=== PATIENT | female | born 1950 | race Caucasian/White ===

== ENCOUNTER → 2018-01-23 13:32 | Outpatient (CLI) | payer OTHER, MEDICARE, SELFPAY ==
--- NOTE | 2018-01-23 | DI.RAD.S_ITS ---
PROCEDURE: XR LUMBAR SPINE 2-3V INDICATIONS: DORSALGIA TECHNIQUE: 3 views of the lumbar spine were acquired. COMPARISON: None. FINDINGS: Bones: Moderate dextroconvex thoracolumbar scoliosis is seen. There is mild grade 1 retrolisthesis seen at L2-L3 and L3-L4, and minimal retrolisthesis at L4-L5. There is mild to moderate disc space narrowing at L1-L2 and L3-L4, with moderate to severe disc space narrowing at L2-L3. Endplate irregularity and sclerosis are seen, which are most prominent at L2-L3. Lower lumbar spine facet arthropathy is seen. Bilateral hip degenerative change is seen, right worse than left. Soft tissues: Overlying bowel gas pattern is normal. No suspicious soft tissue calcifications. IMPRESSION: Dextroconvex scoliosis is seen. Degenerative changes are seen, which are worst at the L2-L3 level. Dictated by: Kalin Aldana M.D. on 01/23/2018 at 14:22 Approved by: Kalin Aldana M.D. on 01/23/2018 at 14:23
== END ==
PROVIDERS: PCP Physician Assistant; Visit Provider Physician Assistant
DX: M51.36 Other intervertebral disc degeneration, lumbar region (principal); Z78.0 Asymptomatic menopausal state; M85.852 Other specified disorders of bone density and structure, left thigh; M16.0 Bilateral primary osteoarthritis of hip; E07.9 Disorder of thyroid, unspecified; M43.16 Spondylolisthesis, lumbar region; M41.85 Other forms of scoliosis, thoracolumbar region; M54.9 Dorsalgia, unspecified
CPT/HCPCS: 72100; 77080

== ENCOUNTER 2018-08-31 09:44 | Day surgery (SDC) | payer OTHER, MEDICARE, SELFPAY ==
[2018-08-31 10:20] VITALS: BP 140/80; PULSE 77; RESP 16; TEMP 36.6; O2SAT 98; BMI 31.1
[2018-08-31] MEDS: SODIUM CHLORIDE 0.9% 1,000 ML 200 ML IV (10:31)
--- NOTE | 2018-08-31 11:01 | PM.HP.1 ---
History of Present Illness Date Patient Seen: 08/31/18 Time Patient Seen: 11:01 Chief complaint: [id number] SCREENING COLONOSCOPY Narrative: Asymptomatic here for screening colonoscopy Patient History Social History household members: family Family & Social History Social History: household members family Meds Home Medications Medication Instructions Recorded Confirmed Type albuterol sulfate 2 inh INHALATION BID PRN 08/31/18 08/31/18 History flunisolide 2 spray INTRANASAL BID 08/31/18 08/31/18 History levothyroxine 112 mcg PO DAILY 08/31/18 08/31/18 History metoprolol succinate 50 mg PO DAILY 08/31/18 08/31/18 History omeprazole 20 mg PO DAILY 08/31/18 08/31/18 History simvastatin 40 mg PO QPM 08/31/18 08/31/18 History Allergies Allergy/AdvReac Type Severity Reaction Status Date / Time Penicillins Allergy Severe Hives Verified 08/31/18 10:11 oxycodone AdvReac Intermediate Confusion Verified 08/31/18 10:11 Sulfa (Sulfonamide AdvReac Intermediate Rash Verified 08/31/18 10:11 Antibiotics) Exam Vital Signs (past 8 hours): - 08/31/18 10:20 Temperature 98 F Pulse Rate 77 Respiratory Rate 16 Blood Pressure 140/80 Pulse Oximetry 98 Oxygen Delivery Method Room Air Narrative Exam Narrative: Alert and oriented stable vital signs Lungs are clear Heart regular rhythm no murmur Abdominal exam normal with no masses no tenderness Rectal will be done at colonoscopy Assessment & Plan Assessment & Plan narrative: Asymptomatic female here for screening colonoscopy agrees to the procedure with no further questions
[2018-08-31] MEDS: MIDAZOLAM 5 MG/5 ML VIAL IV (11:09)
[2018-08-31] MEDS: fentaNYL 250 MCG/5 ML INJ IV (11:09)
--- NOTE | 2018-08-31 11:14 | PM.OP.ENDO ---
Operative Date/Time/Diagnoses Date of procedure: 08/31/18 Time of procedure: 11:14 Pre-op diagnosis: Screening colonoscopy Post-op diagnosis: other (Severe sandhu diverticulosis without diverticulitis) Procedure & Clinicians Study performed: Total colonoscopy to the cecum Same procedure as scheduled: Yes Indications: Screening Surgeon: Felipe El Procedure Notes SCOAP/Timeout: None Procedure in detail: Patient was properly identified during surgical pause she was given a total of she was given a total of 150 micro g of fentanyl and 5 mg of Versed throughout the procedure the flexible fiberoptic colonoscope insert inserted transanally to the cecum. Patient has severe sigmoid diverticulosis without diverticulitis and sandhu diverticulosis throughout the entire colon. There are no tumors no polyps or ulcerations. Procedures very well tolerated. Scope withdrawal time: 6 Sedation minutes: 12 Findings: diverticulosis Specimen(s): none sent Complications: none Impression: Sandhu diverticulosis Recommendations: Colonscopy in 10 years Follow up: as needed Disposition: PACU
[2018-08-31 11:17] VITALS: BP 108/53; PULSE 94; RESP 15; TEMP 36.5; O2SAT 96
[2018-08-31 11:22] VITALS: BP 106/50; PULSE 95; RESP 14; TEMP 36.4; O2SAT 94
[2018-08-31 11:33] VITALS: BP 105/60; PULSE 84; RESP 15; TEMP 36.2; O2SAT 93
[2018-08-31 11:45] VITALS: BP 123/69; PULSE 79; RESP 16; TEMP 36.7; O2SAT 96
[2018-08-31] MEDS: ONDANSETRON 4 MG ODT SL (12:00)
--- NOTE | 2018-08-31 12:01 | SUR.PHASEII ---
Pt nauseated, then vomited clear secretions. Dr Raygoza made aware, pt medicated. Stated she felt better after vomiting. Dr. Raygoza scame to bedside to moniter pt. Instructed pt to take gas x or similar med at home. Pt voiced an understanding.
[2018-08-31 12:06] VITALS: BP 120/79; PULSE 80; RESP 16; TEMP 36.3; O2SAT 95
--- NOTE | 2018-08-31 12:11 | SUR.PHASEII ---
Pt stated she was ready, left in stable condition.
== END 2018-08-31 12:10 | disposition home or self-care (01) ==
PROVIDERS: PCP Physician Assistant; Visit Provider Surgery
PROC: 0DJD8ZZ Inspection of Lower Intestinal Tract, Via Natural or Artificial Opening Endoscopic (ICD-10-PCS; CPT 45378; principal; 2018-08-31 12:15)
DX: Z12.11 Encounter for screening for malignant neoplasm of colon (principal); K57.30 Diverticulosis of large intestine without perforation or abscess without bleeding
CPT/HCPCS: 45378; 99152; J2250; J3010

== ENCOUNTER → 2020-04-13 12:25 | Outpatient (CLI) | payer OTHER, SELFPAY | PROVIDERS: PCP Student in an Organized Health Care Education/Training Program; Referring Provider Student in an Organized Health Care Education/Training Program; Visit Provider Student in an Organized Health Care Education/Training Program | DX: M85.852 Other specified disorders of bone density and structure, left thigh (principal); Z78.0 Asymptomatic menopausal state; E07.9 Disorder of thyroid, unspecified | CPT/HCPCS: 77080 ==

== ENCOUNTER → 2020-09-22 14:44 | Outpatient (ROUT) | payer OTHER, SELFPAY ==
[2020-09-22 15:01] LABS: Add Manual Diff / Slide Review NO; Basophils Absolute Auto 100 /uL (0-100); Basophils Percent Auto 0.9 % (0-2); Eosinophils Absolute Auto 200 /uL (0-450); Eosinophils Percent Auto 3.2 % (2-4); Hemoglobin 14.1 g/dL (12.0-16.0); Lymphocytes Absolute Auto 2200 /uL (1100-4500); Mean Corpuscular HGB Conc 33.7 % (30-36); Mean Corpuscular Hemoglobin 31.9 PG (26-34); Mean Corpuscular Volume 94.6 fL (80-100); Monocytes Absolute Auto 600 /uL (0-900); Monocytes Percent Auto 8.6 % (3-14); Neutrophils Absolute Auto 4000 /uL (1500-7000); Neutrophils Percent Auto 56.3 % (50-75); Platelet Count 376 X10^3/uL (150-400); Red Blood Cell Count 4.44 X10^6/uL (4.0-5.2); Red Cell Distribution Width 11.9 % (11.6-14.8); White Blood Cell Count 7.1 X10^3/uL (4.5-11.0)
[2020-09-22 15:14] LABS: Alanine Aminotransferase 31 IU/L (<35); Albumin 4.1 g/dL (3.5-5.0); Albumin Globulin Ratio 1.6 (1.0-2.8); Alkaline Phosphatase 61 U/L (38-126); Aspartate Aminotransferase 37 IU/L (14-36); BUN Creatinine Ratio 18.1 (6-22); Bilirubin Total 1.1 mg/dL (0.2-1.3); Blood Urea Nitrogen 15 mg/dL (7-17); Calcium 9.7 mg/dL (8.4-10.2); Carbon Dioxide 26 mmol/L (22-32); Chloride 103 mmol/L (98-107); Cholesterol 145 mg/dL (140-199); Estimated Glomerular Filt Rate > 60.0 mL/min (>60); Globulin 2.6 g/dL (1.7-4.1); Glucose 99 mg/dL (80-110); HDL Cholesterol 49 mg/dL (40-60); HEMOLYSIS < 15 (0-50); LDL Cholesterol Calculated 71 mg/dL (<100); Potassium 4.5 mmol/L (3.4-5.1); Sodium 137 mmol/L (137-145); Total Protein 6.7 g/dL (6.3-8.2); Triglycerides 126 mg/dL (35-150)
[2020-09-25 10:56] LABS: Thyroid Stimulating Hormone 0.204 uIU/mL (0.47-4.68)
== END ==
PROVIDERS: PCP Student in an Organized Health Care Education/Training Program; Visit Provider Student in an Organized Health Care Education/Training Program
DX: E78.2 Mixed hyperlipidemia (principal); I10 Essential (primary) hypertension
CPT/HCPCS: 80053; 80061; 84443; 85025

== ENCOUNTER → 2020-10-15 09:26 | Outpatient (CLI) | payer OTHER, SELFPAY ==
--- NOTE | 2020-10-15 | DI.RAD.S_ITS ---
PROCEDURE: XR HAND RT MIN 3V INDICATIONS: disorders of bone density and structure TECHNIQUE: 3 views of the hand(s) acquired. COMPARISON: [facility], CR, XR HAND LT MIN 3V, 10/15/2020, 9:35. [facility], CR, XR DEXA AXIAL SKELETON, 04/13/2020, 12:34. FINDINGS: Bones: No fractures or dislocations. Carpal bones are normally aligned. No suspicious bony lesions. Generalized decrease in osseous mineralization noted. Small accessory ossicle or old avulsion fracture noted associated with the head of 3rd middle phalanx Soft tissues: No suspicious soft tissue calcifications. IMPRESSION: Mild osteopenia without acute fracture or foreign body. Small accessory ossicle or old avulsion fracture associated with the 3rd middle phalanx Dictated by: Dharmesh Gramajo M.D. on 10/15/2020 at 12:15 Approved by: Dharmesh Gramajo M.D. on 10/15/2020 at 12:18
--- NOTE | 2020-10-15 | DI.RAD.S_ITS ---
PROCEDURE: XR DEXA AXIAL SKELETON INDICATIONS: disorders of bone density and structure COMPARISON: [facility], CR, XR DEXA AXIAL SKELETON, 04/13/2020, 12:34. FINDINGS: This blank DEXA report has been sent in error by the PACS system. The correct and complete report will be forthcoming in 1-2 days. Thank you for your patience and understanding. Dictated by: Donna Dubois MD, PhD on 10/15/2020 at 16:59 Approved by: Donna Dubois MD, PhD on 10/15/2020 at 16:59
--- NOTE | 2020-10-15 | DI.RAD.S_ITS ---
PROCEDURE: XR HAND LT MIN 3V INDICATIONS: disorders of bone density and structure TECHNIQUE: 3 views of the hand(s) acquired. COMPARISON: [facility], CR, XR HAND RT MIN 3V, 10/15/2020, 9:35. FINDINGS: Bones: No fractures or dislocations. Carpal bones are normally aligned. No osseous erosion identified. No suspicious bony lesions. Bones appear somewhat osteopenic. Left hand appears similar to the right. Soft tissues: No suspicious soft tissue calcifications. IMPRESSION: No fracture or dislocation. Bones appear somewhat osteopenic. Dictated by: West Santana M.D. on 10/15/2020 at 11:31 Approved by: West Santana M.D. on 10/15/2020 at 11:33
== END ==
PROVIDERS: PCP Student in an Organized Health Care Education/Training Program; Referring Provider Student in an Organized Health Care Education/Training Program; Visit Provider Student in an Organized Health Care Education/Training Program
DX: M79.642 Pain in left hand (principal); M79.641 Pain in right hand; M85.851 Other specified disorders of bone density and structure, right thigh; Z78.0 Asymptomatic menopausal state; E07.9 Disorder of thyroid, unspecified
CPT/HCPCS: 73130; 77080

== ENCOUNTER → 2022-12-05 09:41 | Outpatient (CLI) | payer OTHER, SELFPAY ==
--- NOTE | 2022-12-05 09:43 | DI.RAD.S_ITS ---
Bone Density Report Name: LEONIE CUMMINS Age: 72 Sex: Female Ethnicity: White Date of : 1950 Indication: postmenopausal; screening for osteoporosis; Referring Provider: HALLEY Vicente Study: Bone densitometry was performed. Exam Date: December 05, 2022 Accession number: [id number] Bone Density: Region BMD T-score Z-score Classification AP Spine(L1, L3, L4) 0.975 -0.7 1.4 Normal Femoral Neck (Left) 0.657 -1.7 0.1 Osteopenia Total Hip (Left) 0.776 -1.4 0.2 Osteopenia Femoral Neck (Right) 0.662 -1.7 0.1 Osteopenia Total Hip (Right) 0.747 -1.6 -0.1 Osteopenia Total Hip Mean 0.762 -1.5 0.1 Osteopenia World Health Organization criteria for BMD impression classify patients as: Normal (T-score at or above -1.0), Osteopenia (T-score between -1.0 and -2.5), or Osteoporosis (T-score at or below -2.5). 10-year Fracture Risk(1): Major Osteoporotic Fracture 9.9% Hip Fracture 1.6% Reported Risk Factors: [place] (), Neck BMD=0.657, BMI=34.0 (1) FRAX(R) Version 3.08. Fracture probability calculated for an untreated patient. Fracture probability may be lower if the patient has received treatment. Impression: The patient has low bone mass, based on the Left Femoral Neck T-score. The patient has an estimated ten-year risk of hip fracture of 1.6% and an estimated ten-year risk of major fracture of 9.9%, based on the WHO FRAX algorithm. Discussion: BONE DENSITY IS LOW AT ONE OR MORE SKELETAL SITES. This patient's lowest T-score is low at one or more skeletal sites. It meets the World Health Organization's (WHO) criteria for low bone mass (T-score between -1.0 and -2.5). The patient's 10-year risk of fracture as calculated by FRAX is less than the threshold where pharmacological therapy is recommended by the National Osteoporosis Foundation (NOF). However, all treatment decisions require clinical judgment and consideration of individual patient factors, including patient preferences, comorbidities, previous drug use, risk factors not captured in the FRAX model (e.g., frailty, falls, vitamin D deficiency, increased bone turnover, interval significant decline in bone density) and possible under or overestimation of fracture risk by FRAX. The patient should follow a healthful lifestyle (good nutrition with adequate calcium and vitamin D, and appropriate weight-bearing exercise). Follow-Up: Consider repeating this study in 2 to 3 years to reassess this patient's status, or sooner if there is some new clinical indication. Reported by: GURU OSEI M.D. on 12/05/2022 10:11:00 AM.
== END ==
PROVIDERS: PCP Student in an Organized Health Care Education/Training Program; Referring Provider Student in an Organized Health Care Education/Training Program; Visit Provider Student in an Organized Health Care Education/Training Program
DX: Z13.820 Encounter for screening for osteoporosis (principal); E21.3 Hyperparathyroidism, unspecified; M85.852 Other specified disorders of bone density and structure, left thigh; Z78.0 Asymptomatic menopausal state
CPT/HCPCS: 77080